=== PATIENT | female | born 1970 | race Caucasian/White ===

== ENCOUNTER → 2020-06-26 15:15 | Outpatient (BNVA) | payer OTHER, SELFPAY | PROVIDERS: Family Provider Family Medicine; PCP Family Medicine; Visit Provider Nurse Practitioner Family | DX: Z11.59 Encounter for screening for other viral diseases (principal) | CPT/HCPCS: 87635 ==

== ENCOUNTER → 2020-07-05 15:23 | Outpatient (BNVA) | payer SELFPAY | PROVIDERS: Family Provider Family Medicine; PCP Family Medicine; Visit Provider Nurse Practitioner Family | DX: Z11.59 Encounter for screening for other viral diseases (principal); Z20.828 Contact with and (suspected) exposure to other viral communicable diseases; J06.9 Acute upper respiratory infection, unspecified | CPT/HCPCS: 87635 ==

== ENCOUNTER → 2021-06-08 12:31 | Outpatient (BNVA) | payer OTHER, SELFPAY | PROVIDERS: Family Provider Family Medicine; PCP Family Medicine; Visit Provider Nurse Practitioner Family | DX: Z20.822 Contact with and (suspected) exposure to COVID-19 (principal) | CPT/HCPCS: 87635 ==

== ENCOUNTER 2023-01-11 08:13 | Outpatient (CLI) | payer MEDICAID, SELFPAY ==
--- NOTE | 2023-01-11 08:30 | MM_ITS ---
WS: [id number] BILATERAL SCREENING DIGITAL TOMOSYNTHESIS MAMMOGRAM WITH CAD HISTORY: screening COMPARISON: None available. Bilateral CC and MLO views with tomosynthesis and synthetic mammography submitted. Computer aided det ection analyzed. Breast composition: There are scattered areas of fibroglandular density. No suspicious masses, microc alcifications or architectural distortion. Benign lymph node lateral LEFT breast. MM/[place] [id number] IMPRESSION: BI-RADS: 2-Benign FOLLOW UP: 1 Year Follow-up
== END 2023-01-11 08:14 | disposition home or self-care (01) ==
LOC: RAD 08:17
PROVIDERS: PCP Family Medicine; Visit Provider Family Medicine
DX: Z12.31 Encounter for screening mammogram for malignant neoplasm of breast (principal)
CPT/HCPCS: 77063; 77067

== ENCOUNTER 2023-10-11 09:01 | Day surgery (SDC) | payer MEDICAID, SELFPAY ==
[2023-10-11 09:19] VITALS: BP 141/97; PULSE 77; RESP 16; TEMP 36.4; O2SAT 100; BMI 42.5
[2023-10-11] MEDS: sodium chloride 0.9% 1,000 ML 30 ML IV (09:30)
[2023-10-11 09:34] LABS: OR HCG Qualitative Urine Negative (Negative)
--- NOTE | 2023-10-11 09:52 | W.PM.OPSFHP ---
Same Day Surgery H&P Indication for Procedure/HPI DATE OF PROCEDURE: October 11, 2023 CHIEF COMPLAINT/INDICATIONFOR SURGICAL PROCEDURE: need for screening colonoscopy PREOP DIAGNOSIS: need for screening colonoscopy PLANNED PROCEDURE: Operation Date: 10/11/23 09:50 [place] Procedures [place] [address]140 colon G0121 screen colon a risk Z12.11(Not Applicable) - Yohannes Carrillo MD Medications/Allergies* Home Medications Medication Instructions Recorded Confirmed Type multivitamin 1 tab PO DAILY 06/08/21 10/09/23 History cholecalciferol (vitamin D3) 1,250 1,250 mcg PO DAILY 12/27/22 10/09/23 History mcg (50,000 unit) capsule collagen/biotin 3 cap PO DAILY 07/30/23 10/09/23 History pantoprazole 20 mg tablet,delayed 20 mg PO DAILY PRN Heartburn 07/30/23 10/09/23 History release psyllium husk 0.52 gram capsule 0.52 g PO DAILY PRN Constipation 07/30/23 10/09/23 History (Daily Fiber) citalopram 40 mg tablet 40 mg PO DAILY 10/09/23 10/09/23 History Allergies/Adverse Reactions Allergy/AdvReac Type Severity Reaction Status Date / Time ampicillin Allergy rash Verified 10/11/23 09:17 Current Medications: Generic Name Dose Route Start Last Admin Trade Name Freq PRN Reason Stop Dose Admin Sodium Chloride 1,000 mls @ 30 mls/hr 10/11/23 09:15 10/11/23 09:30 Sodium Chloride 0.9% IV 10/12/23 09:14 30 mls/hr .Q24H ELBA Administration Pertinent History/Comorbid Conditions* Medical History (Updated 12/27/22 @ 12:44 by Alexander Medina MD) Depression Family History (Updated 07/30/23 @ 08:30 by BAKARI Khan) Leukemia Mother Cancer Mother skin, stomach Father skin, breast Social History Smoking and tobacco/nicotine status: never used tobacco/nicotine Pertinent Exam Findings alert, oriented x 3 and clear to auscultation bilaterally Recommendations Surgery/Procedure today Coding Level of Care Code Acute Code for Chg Fwd
--- NOTE | 2023-10-11 09:55 | ANES.PREANE2 ---
Pre-Anesthetic Assessment Height/Weight: Height 1.63 m Weight 112.491 kg Temp Pulse Resp BP Pulse Ox O2 Del Method 97.5 F L 77 16 141/97 100 Room Air 10/11/23 09:19 10/11/23 09:19 10/11/23 09:19 10/11/23 09:19 10/11/23 09:19 10/11/23 09:19 Preop Diagnosis: need for screening colonoscopy Operation Date: 10/11/23 09:50 [place] Procedures [place] 48795 colon G0121 screen colon a risk Z12.11(Not Applicable) - Yohannes Carrillo MD Familial anesthetic complications: none Was Beta Jose taken within 24 hours: N/A Was Clonidine taken within 24 hours: N/A Last intake: Intake Last Liquid Date 10/10/23 Last Liquid Time 22:00 Last Solid Date 10/09/23 Last Solid Time 20:00 Social No alcohol and No tobacco Exam alert, oriented x 3 and regular rate & rhythm Airway Mallampati: Class II Dentition: full History/ROS No significant history except as noted Pulmonary None reported CV/HEM None reported None reported Hepatic None reported GI Gastroesophageal Reflux Disease (well controlled with medication) gastric bypass in february [address] [facility] [place] None reported Neuropsych None reported Anesthetic Plan ASA status: 3 Anesthesia: Anesthesia Evaluation and MAC Risk of > 500 ml blood loss (7ml/kg in children): No Medications/Allergies Home Medications Medication Instructions Recorded Confirmed Last Taken Type multivitamin 1 tab PO DAILY 06/08/21 10/09/23 10/10/23 History cholecalciferol (vitamin D3) 1,250 1,250 mcg PO DAILY 12/27/22 10/09/23 10/10/23 History mcg (50,000 unit) capsule collagen/biotin 3 cap PO DAILY 07/30/23 10/09/23 10/10/23 History pantoprazole 20 mg tablet,delayed 20 mg PO DAILY PRN Heartburn 07/30/23 10/09/23 10/08/23 History release psyllium husk 0.52 gram capsule 0.52 g PO DAILY PRN Constipation 07/30/23 10/09/23 10/09/23 History (Daily Fiber) citalopram 40 mg tablet 40 mg PO DAILY 10/09/23 10/09/23 10/10/23 History Allergies Allergy/AdvReac Type Severity Reaction Status Date / Time ampicillin Allergy rash Verified 10/11/23 09:17 Current Medications Generic Name Dose Route Start Last Admin Trade Name Freq PRN Reason Stop Dose Admin Sodium Chloride 1,000 mls @ 30 mls/hr 10/11/23 09:15 10/11/23 09:30 Sodium Chloride 0.9% IV 10/12/23 09:14 30 mls/hr .Q24H ELBA Administration PFSH Anesthesia Medical History Depression Family History (Updated 07/30/23 @ 08:[address]) Mother Cancer skin, stomach Leukemia Father Cancer skin, breast Social History Smoking and tobacco/nicotine status: never used tobacco/nicotine Data Anesthesia Cardiac Studies: No Data to Display
[2023-10-11 10:48] VITALS: BP 119/80; PULSE 79; RESP 16; TEMP 36.8; O2SAT 98
[2023-10-11 11:04] VITALS: BP 118/69; PULSE 68; RESP 16; O2SAT 99
--- NOTE | 2023-10-11 15:45 | ANE.PACU2 ---
Inpatient post-anesthesia follow up: Airway intact: Yes Vital signs: Temperature 98.3 F Pulse Rate 68 Respiratory Rate 16 Blood Pressure 118/69 Pulse Oximetry 99 Oxygen Delivery Me thod Room Air Oxygen Flow Rate Fraction of Inspir ed Oxygen Hydration adequate: Yes Nausea and vomiting: No Pain level: 2 Mental status: Baseline
== END 2023-10-11 11:34 | disposition home or self-care (01) ==
PROVIDERS: Anesthesiology; PCP Family Medicine; Visit Provider Surgery
PROC: 0DJD8ZZ Inspection of Lower Intestinal Tract, Via Natural or Artificial Opening Endoscopic (ICD-10-PCS; CPT 45378; principal; 2023-10-11 09:50)
DX: Z12.11 Encounter for screening for malignant neoplasm of colon (principal); K63.5 Polyp of colon; D12.8 Benign neoplasm of rectum; K21.9 Gastro-esophageal reflux disease without esophagitis; Z98.84 Bariatric surgery status; E66.01 Morbid (severe) obesity due to excess calories; Z68.41 Body mass index [BMI] 40.0-44.9, adult
CPT/HCPCS: 45380; 45384; 45385; 81025; 84703; 88305; J2704; J7030

== ENCOUNTER 2023-10-24 09:22 | Outpatient (CLI) | payer MEDICAID, SELFPAY ==
[2023-10-24 11:12] LABS: Basophils # 0.1 10^3/uL (0.0-0.1); Eosinophils # 0.3 10^3/uL (0.0-0.8); Eosinophils % 4.1 %; Hematocrit 38.4 % (36-47); Lymphocytes # 1.3 10^3/uL (0.8-4.8); Lymphocytes % 21.8 %; Mean Corpuscular HGB Conc 30.5 g/dL (30-55); Mean Corpuscular Hemoglobin 26.5 pg (27-33); Mean Corpuscular Volume 86.9 fl (85-98); Mean Platelet Volume 10.2 fL (7.4-10.4); Monocytes # 0.4 10^3/uL (0.2-0.9); Neutrophils # 4.02 10^3/uL (1.8-7.7); Neutrophils % 65.8 %; Nucleated Red Blood Cells % 0 %; Platelet Count 413 10^3/cmm (157-399); Red Blood Count 4.42 10^6/uL (3.85-5.65); Red Cell Distribution Width 15.9 % (12.1-15.1); White Blood Count 6.11 10^3/uL (3.29-11.43)
[2023-10-24 11:48] LABS: Calcium 8.7 mg/dL (8.5-10.5); Parathyroid Hormone 56.2 pg/mL (15-65)
[2023-10-24 11:49] LABS: Alanine Aminotransferase 15 U/L (0-33); Albumin Level 3.6 g/dL (3.5-5.2); Alkaline Phosphatase 92 U/L (35-105); Anion Gap 9.8 (5-19); Aspartate Amino Transferase 16 U/L (0-32); Blood Urea Nitrogen 9 mg/dL (6-20); Calcium 8.8 mg/dL (8.5-10.5); Carbon Dioxide 27 mmol/L (22-29); Chloride 105 mmol/L (98-107); Cholesterol 155 mg/dL (0-200); Globulin 3.4 g/dL (1.3-4.6); Glucose 87 mg/dL (65-115); HDL Cholesterol 43 mg/dL (60-100); LDL Cholesterol Calculated 99 mg/dL (50-129); Osmolality Calculated 284 mOsm/kg (285-295); Potassium 3.8 mmol/L (3.5-5.1); Sodium 138 mmol/L (136-145); Thyroid Stimulating Hormone 1.88 uIU/mL (0.27-4.20); Total Bilirubin 0.3 mg/dL (0.15-1.2); Triglycerides 67 mg/dL (0-150)
[2023-10-24 11:57] LABS: Folate Level 11.1 ng/mL (4.8-37.3)
[2023-10-24 11:59] LABS: Ferritin 29 ng/mL (15-150); Iron 30 ug/dL (37-145); Percent Saturation 12.3 % (20-50); Phosphorus 2.3 mg/dL (2.5-4.5); Total Iron Binding Capacity 242 mcg/dl; Unsaturated Iron Binding 212 ug/dL (112-347); Vitamin B12 996 pg/mL (232-1245)
[2023-10-26 19:18] LABS: Copper Level 150 mcg/dL (70-175)
[2023-10-28 12:25] LABS: Vit D 1,25 (Oh)2, Total 52 pg/mL (18-72); Vit D2 1,25 (Oh)2 9 pg/mL; Vit D3 1,25 (Oh)2 43 pg/mL
[2023-10-28 17:39] LABS: Vitamin K 291 pg/mL (130-1500)
[2023-10-28 17:58] LABS: Vitamin A (Retinol) 34 mcg/dL (38-98)
[2023-10-30 10:59] LABS: Alpha-Tocopherol 9.2 mg/L (5.7-19.9); Beta-Gamma-Tocopherol <1.0 mg/L (<4.4)
== END 2023-10-24 09:23 | disposition home or self-care (01) ==
LOC: LAB 09:23
PROVIDERS: PCP Family Medicine; Visit Provider Family Medicine
DX: K91.2 Postsurgical malabsorption, not elsewhere classified (principal); Z98.84 Bariatric surgery status
CPT/HCPCS: 36415; 80053; 80061; 82310; 82525; 82607; 82652; 82728; 82746; 83550; 83735; 83970; 84100; 84443; 84446; 84590; 84597; 85025

== ENCOUNTER 2024-01-17 15:20 | Outpatient (CLI) | payer MEDICAID, SELFPAY ==
--- NOTE | 2024-01-17 15:46 | MM_ITS ---
WS: [id number] BILATERAL 3D TOMOSYNTHESIS DIGITAL SCREENING MAMMOGRAPHY WITH CAD CLINICAL INFORMATION: SCREEN HISTORY: Screening mammogram. No current complaints. COMPARISON: 2022 TECHNIQUE: Bilateral CC and MLO views. FINDINGS: Scattered fibroglandular densities bilaterally. Increasing nodular soft tissue and clustered calcific ations subareolar RIGHT breast. Recommend spot magnification views and ultrasound. A few incidental punctate calcifications. LEFT breast is unchanged. MM/[place] [id number] IMPRESSION: BI-RADS: 0-Incomplete: Need additional imaging evaluation FOLLOW UP: Need Additional Imaging Recommend RIGHT breast diagnostic mammography with spot magnification views of the calcifications and ultrasound
== END 2024-01-17 15:21 | disposition home or self-care (01) ==
LOC: RAD 15:21
PROVIDERS: Visit Provider Family Medicine
DX: Z12.31 Encounter for screening mammogram for malignant neoplasm of breast (principal); R92.323 Mammographic fibroglandular density, bilateral breasts
CPT/HCPCS: 77063; 77067

== ENCOUNTER 2024-02-14 14:15 | Outpatient (CLI) | payer MEDICAID, SELFPAY ==
--- NOTE | 2024-02-14 14:23 | US_ITS ---
WS: [id number] RIGHT 3D TOMOSYNTHESIS DIGITAL MAMMOGRAPHY WITH CAD CLINICAL INFORMATION: abnormal mammo HISTORY: Additional views COMPARISON: 01/18/2024 TECHNIQUE: 3 views of the right breast were obtained. FINDINGS: Scattered fibroglandular densities of the right breast. Again seen are nodular soft tissue densities and clustered calcifications subareolar RIGHT breast. Spot magnification views demonstrate tiny punctate and loosely clustered calcifications. These are pr obably benign and recommend 6-month follow-up RIGHT diagnostic mammography with spot magnification vi ews. Ultrasound of the nodular densities described below. ULTRASOUND BREAST RIGHT TECHNIQUE: Ultrasound right breast focused area of concern. CLINICAL INFORMATION: abnormal mammo FINDINGS: Ultrasound subareolar RIGHT breast. Subareolar ultrasound demonstrates ductal ectasia. No visualized intraductal lesions. No suspicious c ystic or solid lesions. Ultrasound findings have a benign appearance. US/US breast RT limited* [id number] IMPRESSION: BI-RADS: 3-Probably Benign FOLLOW UP: 6 Month Follow-up Recommend 6-month follow-up RIGHT breast diagnostic mammography with spot magni fication views of the calcifications.
--- NOTE | 2024-02-14 14:30 | MM_ITS ---
WS: [id number] RIGHT 3D TOMOSYNTHESIS DIGITAL MAMMOGRAPHY WITH CAD CLINICAL INFORMATION: abnormal mammo HISTORY: Additional views COMPARISON: 01/18/2024 TECHNIQUE: 3 views of the right breast were obtained. FINDINGS: Scattered fibroglandular densities of the right breast. Again seen are nodular soft tissue densities and clustered calcifications subareolar RIGHT breast. Spot magnification views demonstrate tiny punctate and loosely clustered calcifications. These are pr obably benign and recommend 6-month follow-up RIGHT diagnostic mammography with spot magnification vi ews. Ultrasound of the nodular densities described below. ULTRASOUND BREAST RIGHT TECHNIQUE: Ultrasound right breast focused area of concern. CLINICAL INFORMATION: abnormal mammo FINDINGS: Ultrasound subareolar RIGHT breast. Subareolar ultrasound demonstrates ductal ectasia. No visualized intraductal lesions. No suspicious c ystic or solid lesions. Ultrasound findings have a benign appearance. MM/[place] [id number] IMPRESSION: BI-RADS: 3-Probably Benign FOLLOW UP: 6 Month Follow-up Recommend 6-month follow-up RIGHT breast diagnostic mammography with spot magni fication views of the calcifications.
== END 2024-02-14 14:16 | disposition home or self-care (01) ==
LOC: RAD 14:15
PROVIDERS: Visit Provider Family Medicine
DX: R92.8 Other abnormal and inconclusive findings on diagnostic imaging of breast (principal); R92.323 Mammographic fibroglandular density, bilateral breasts; R92.1 Mammographic calcification found on diagnostic imaging of breast; N60.41 Mammary duct ectasia of right breast
CPT/HCPCS: 76642; 77061; G0279

== ENCOUNTER 2024-10-02 13:04 | Outpatient (CLI) | payer MEDICAID, SELFPAY ==
--- NOTE | 2024-10-02 13:10 | MM_ITS ---
WS: [id number] RIGHT 3D TOMOSYNTHESIS DIGITAL MAMMOGRAPHY WITH CAD CLINICAL INFORMATION: ABNORMAL MAMMO 6 MO F/U HISTORY: 6-month follow-up calcifications COMPARISON: 01/17/2024 TECHNIQUE: 3 views of the right breast were obtained. FINDINGS: Scattered fibroglandular densities of the right breast. Nodular soft tissue densities and clustered c alcifications are again seen subareolar RIGHT breast. Magnification views again demonstrate tiny punctate, amorphous, and loosely clustered calcifications unchanged compared to the prior examination. These are probably benign recommend additional 6-month f ollow-up. Nodular densities were previously evaluated demonstrated ductal ectasia in this area. MM/MM diag RT tomosynthesis [id number] IMPRESSION: DENSITY: There are scattered areas of fibroglandular density. BI-RADS: 3 - Probably Benign. FOLLOW UP: 6 Month Follow-up Recommend 6-month follow-up RIGHT breast diagnostic mammography with spot magni fication views of the calcifications.
== END 2024-10-02 13:05 | disposition home or self-care (01) ==
LOC: RAD 13:05
PROVIDERS: Visit Provider Family Medicine
DX: R92.8 Other abnormal and inconclusive findings on diagnostic imaging of breast (principal); R92.321 Mammographic fibroglandular density, right breast; R92.1 Mammographic calcification found on diagnostic imaging of breast; N60.41 Mammary duct ectasia of right breast
CPT/HCPCS: 77061; G0279

== ENCOUNTER → 2025-01-05 16:21 | Outpatient (BNVA) | payer MEDICAID, SELFPAY | DX: M19.072 Primary osteoarthritis, left ankle and foot (principal) | CPT/HCPCS: 73630 ==